=== PATIENT | male | born 1965 | race African-American/Black ===

== ENCOUNTER 2017-02-28 10:12 | Emergency (ER) | payer SELFPAY ==
[~2017-02-28] VITALS: Ht 182.9 cm; Wt 70.0 kg
[2017-02-28 10:14] VITALS: BP 128/84; PULSE 92; RESP 16; TEMP 98.2; O2SAT 97
--- NOTE | 2017-02-28 10:39 | PD ---
HPI Chief Complaint: GI Complaint Time Seen by Provider: 10:21 Travel History International Travel<30 days: No Contact w/Intl Traveler<30days: No Traveled to known affect area: No History of Present Illness HPI 51-year-old male presents to the emergency department complaining of subjective fever, chills with associated nausea, vomiting and diarrhea. Patient states that his symptoms started Thursday. Patient works as a cook. Patient denies hematochezia, melena, hematemesis. Patient says that he has had multiple episodes of nonbloody nonbilious vomiting daily. Also states he has had multiple episodes of nonbloody diarrhea. Patient denies recent travel, unusual foods, new medications, illicit drug use. Patient denies history of surgeries abdominal or otherwise. Patient denies chronic medical issues. Patient denies abdominal pain. PFSH Past Medical History Medical History: Denies Significant Hx Tetanus Vaccination: < 5 Years Past Surgical History Surgical History: No Previous Surgery Social History Alcohol Use: No Tobacco Use: Yes Substance Use: No Allergies-Medications (Allergen,Severity, Reaction): Coded Allergies: No Known Allergies (Unverified , 02/28/17) Reported Meds & Prescriptions Reported Meds & Active Scripts Active Zofran (Ondansetron HCl) 4 Mg Tab 4 Mg PO Q8HR PRN 5 Days Review of Systems Except as stated in HPI: all other systems reviewed are Neg Physical Exam Narrative GENERAL: Well-developed well-nourished in no apparent distress SKIN: Focused skin assessment warm/dry. HEAD: Atraumatic. Normocephalic. EYES: Pupils equal and round. No scleral icterus. No injection or drainage. ENT: No nasal bleeding or discharge. Mucous membranes pink and moist. NECK: Trachea midline. No JVD. No midline tenderness CARDIOVASCULAR: Regular rate and rhythm. No murmur appreciated. RESPIRATORY: No accessory muscle use. Clear to auscultation. Breath sounds equal bilaterally. GASTROINTESTINAL: Abdomen soft, nondistended. Hepatic and splenic margins not palpable. Mildly tender to the epigastric region without rebound tenderness or radiation of pain BACK: No CVA tenderness. No rash. No point tenderness on palpation of the spine. MUSCULOSKELETAL: No obvious deformities. No clubbing. No cyanosis. No edema. Negative psoas sign NEUROLOGICAL: Awake and alert. No obvious cranial nerve deficits. Motor grossly within normal limits. Normal speech. PSYCHIATRIC: Appropriate mood and affect; insight and judgment normal. Data Data Last Documented VS Vital Signs Date Time Temp Pulse Resp B/P (MAP) Pulse Ox O2 Delivery O2 Flow Rate FiO2 02/28/17 11:00 78 16 120/68 (85) 99 02/28/17 10:14 98.2 Orders Orders Ed Discharge Order (02/28/17 10:55) [facility] Medical Decision Making Medical Screen Exam Complete: Yes Emergency Medical Condition: Yes Differential Diagnosis Gastroenteritis, gastritis, viral syndrome Narrative Course 51-year-old male presents to the emergency department complaining of subjective fever, chills with associated nausea, vomiting and diarrhea. Patient states that his symptoms started Thursday. Patient works as a cook. Patient denies hematochezia, melena, hematemesis. Patient says that he has had multiple episodes of nonbloody nonbilious vomiting daily. Also states he has had multiple episodes of nonbloody diarrhea. Patient denies recent travel, unusual foods, new medications, illicit drug use. Patient denies history of surgeries abdominal or otherwise. Patient denies chronic medical issues. Patient denies abdominal pain. Patient denies urinary symptoms, denies hematuria Vital signs stable Physical exam essentially unremarkable. Mild epigastric tenderness. No CVA tenderness. No tenderness palpation of the lower back or upper back. Patient is not using any medication [id number] for his symptoms. Patient history and physical consistent with gastroenteritis. Advised patient that his symptoms may last up to 1 week. Patient states he has been able to keep fluids down which is encouraging. Advised patient to continue a healthy diet with plenty of fluid intake. Zofran for nausea and vomiting for outpatient use. Advised he may use Imodium [id number] per package instructions for diarrhea. Advised patient to follow up primary care physician within 2-3 days. Return to the emergency department for worsening or persistent symptoms. Diagnosis Primary Impression: Gastroenteritis Referrals: [facility] Departure Forms: Tests/Procedures, Work Release Enter return to work date: Mar 02, 2017 Additional Instructions: Take medication as prescribed. If her symptoms persist or worsen return to the emergency room. You may take Imodium for diarrhea per package instructions. Scripts Ondansetron (Zofran) 4 Mg Tab 4 MG PO Q8HR Y for NAUSEA OR VOMITING for 5 Days, TAB 0 Refills Prov: Cash Carrasquillo MD 02/28/17 Disposition: 01 DISCHARGE HOME Condition: Stable Amalia Arcos Feb 28, 2017 10:39
[2017-02-28] MEDS ORDERED: ZOFR4TAB PO (10:40)
[2017-02-28 11:00] VITALS: BP 120/68
== END 2017-02-28 11:06 | disposition home or self-care (01) ==
LOC: NEPD 10:12
DX: K52.9 Noninfective gastroenteritis and colitis, unspecified (principal); Z72.0 Tobacco use
CPT/HCPCS: 99283